=== PATIENT | female | born 1965 | race African-American/Black ===

== ENCOUNTER 2020-05-07 16:09 | Outpatient (CLI) | payer OTHER, SELFPAY ==
[2020-05-07 16:39] LABS: Hematocrit 41.1 % (37.0-47.0); Hemoglobin 13.7 g/dL (12.0-15.0); Mean Corpuscular HGB Conc 33.3 g/dl (32-36); Mean Corpuscular Hemoglobin 29.7 pg (26-34); Mean Platelet Volume 10.4 fl (7.4-10.4); Platelet Count Result 295 k/mm3 (150-375); Red Blood Count 4.62 M/mm3 (4.2-5.4); Red Cell Distribution Width 13.4 % (11.5-14.5); White Blood Count 7.5 K/mm3 (4.5-10.0)
== END 2020-05-07 16:10 | disposition home or self-care (01) ==
PROVIDERS: PCP Family Medicine; Visit Provider Family Medicine
DX: D64.9 Anemia, unspecified (principal)
CPT/HCPCS: 36415; 85027

== ENCOUNTER 2020-07-10 17:44 | Outpatient (CLI) | payer OTHER, SELFPAY ==
--- NOTE | ~2020-07-10 | MM_ITS ---
EXAMINATION: MM screening [facility] BI w vilma HISTORY: Screening mammogram TECHNIQUE: Craniocaudal and mediolateral oblique 3-D tomosynthesis images were obtained and synthetic 2-D images were generated. CAD analysis was submitted and interpreted. COMPARISON: 07/07/2019, 07/01/2018, 06/18/2017 bilateral digital screening mammogram examinations BREAST PARENCHYMAL COMPOSITION: There are scattered areas of fibroglandular density. FINDINGS: There are multiple bilateral benign calcifications. There is no evidence of suspicious mass , calcification, or architectural distortion to suggest malignancy in either breast. There has been n o suspicious interval change. IMPRESSION: 1. No mammographic evidence of malignancy. 2. Recommend routine screening mammography in one year. BI-RADS Category 2: Benign finding(s). Reviewed, dictated and finalized at location A.
== END 2020-07-10 17:45 | disposition home or self-care (01) ==
LOC: ANHIMG 17:48
PROVIDERS: PCP Family Medicine; Visit Provider Obstetrics & Gynecology
DX: Z12.31 Encounter for screening mammogram for malignant neoplasm of breast (principal)
CPT/HCPCS: 77063; 77067

== ENCOUNTER 2021-07-23 17:01 | Outpatient (CLI) | payer OTHER, SELFPAY ==
--- NOTE | ~2021-07-23 | MM_ITS ---
EXAMINATION: MM screening [facility] BI w vilma HISTORY: Screening TECHNIQUE: Craniocaudal and mediolateral oblique 3-D tomosynthesis images were obtained and synthetic 2-D images were generated. CAD analysis was submitted and interpreted. COMPARISON: Comparison to multiple prior studies sequentially, with oldest reviewed study dated 04/2015. BREAST PARENCHYMAL COMPOSITION: There are scattered areas of fibroglandular density. FINDINGS: There is no evidence of suspicious mass, calcification, or architectural distortion to sugg est malignancy in either breast. There has been no suspicious interval change. IMPRESSION: 1. No mammographic evidence of malignancy. 2. Recommend routine screening mammography in one year. BI-RADS Category 1: Negative Reviewed, dictated and finalized at location A.
== END 2021-07-23 17:02 | disposition home or self-care (01) ==
LOC: ANHIMG 17:04
PROVIDERS: PCP Family Medicine; Visit Provider Obstetrics & Gynecology
DX: Z12.31 Encounter for screening mammogram for malignant neoplasm of breast (principal)
CPT/HCPCS: 77063; 77067

== ENCOUNTER 2022-01-11 10:58 | Outpatient (CLI) | payer OTHER, SELFPAY ==
--- NOTE | ~2022-01-11 | US_ITS ---
EXAMINATION: US retroperitoneal comp DATE: 01/11/2022 11:58 INDICATION: Microscopic hematuria TECHNIQUE: Multiple ultrasound grayscale images of the kidneys were obtained. COMPARISON: CT dated 06/08/2018 FINDINGS: The right kidney measures 11.5 x 5.9 x 6.1 cm. The left kidney measures 10.1 x 5.2 x 5.6 cm. The kidn eys demonstrate normal echogenicity. Bilateral 1 cm anechoic cysts. There is no hydronephrosis in eit her kidney. No stones identified. The bladder is normal. IMPRESSION: 1. 1 cm bilateral renal cysts. Otherwise normal kidneys with no hydronephrosis. Reviewed, dictated and finalized at location B. IMPRESSION: 1. 1 cm bilateral renal cysts. Otherwise normal kidneys with no hydronephrosis .
== END 2022-01-11 10:59 | disposition home or self-care (01) ==
LOC: ANHIMG 11:06
PROVIDERS: PCP Family Medicine; Visit Provider Urology
DX: R31.29 Other microscopic hematuria (principal); N28.1 Cyst of kidney, acquired
CPT/HCPCS: 76770

== ENCOUNTER 2022-01-21 01:29 | Day surgery (SDC) | payer OTHER, SELFPAY ==
[2022-01-12 12:46] VITALS: BMI 39.5
--- NOTE | 2022-01-20 14:25 | PM.HPGS ---
History of Present Illness History of Present Illness Consent: Risks, benefits, and alternatives have been discussed and questions answered. Patient agrees to proceed with procedure. Chief complaint: epigastric pain, GERD Narrative: Aisha Young is a 57 year old female here for evaluation of belching and burning sensation in chest for 2 months now. Reports symptoms are worse with eating. Will feel a burning sensation in mid-chest that radiates down to epigastric region when swallowing foods, she denies any dysphagia. She reports increase epigastric pressure and discomfort after eating. Symptoms are not associated with any particular foods. She has hx of chronic NSAID use, takes Ibuprofen 600mg daily for at least 5 years now. Symptoms have improved some with omeprazole 20 mg daily but have not completely resolved. 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 Her mother from amyloid. Review of Systems Review of Systems: All systems reviewed & are unremarkable except as noted in HPI and below PMFSH Past Medical History Medical History Arthritis Chronic back pain Fibroids GERD (gastroesophageal reflux disease) HLD (hyperlipidemia) HTN (hypertension) Hypertensive retinopathy Uveitis Surgical History Surgical History H/O dilation and curettage 1993 Hx of hysterectomy Status post breast reduction Family History Family History Father Hypertension Mother Hypertension Amyloidosis Sibling Hypertension Social History Social History Social History: Fiance Smoking status: Never smoker Second hand tobacco smoke exposure: No Alcohol intake: current Alcohol use details: rarely Substance use: never Substance use type: does not use Living arrangements: with friend(s) Additional living arrangements comments: Pt lives with her fiance Gender identity (if verbalized by the patient): Female Sexual Orientation (if Verbalized by the Patient): Straight or Heterosexual Spiritual care concerns: No Meds Home Medications and Allergies Home Medications Medication Instructions Recorded Confirmed Type estradiol 1 mg tablet 1 mg PO DAILY 08/13/19 01/12/22 History fluticasone propionate 50 2 spray NASAL DAILY PRN 08/13/19 01/12/22 History mcg/actuation nasal spray,suspension aspirin 81 mg tablet,delayed 81 mg PO DAILY #90 tablet 10/20/21 01/12/22 Rx release atenolol 50 mg tablet 50 mg PO DAILY #90 tablet 10/20/21 01/12/22 Rx atorvastatin 80 mg tablet 80 mg PO DAILY #90 tablet 10/20/21 01/12/22 Rx hydrochlorothiazide 25 mg tablet 25 mg PO DAILY #90 tablet 10/20/21 01/12/22 Rx lisinopril 20 mg tablet 20 mg PO DAILY #90 tablet 10/20/21 01/12/22 Rx famotidine 20 mg tablet 20 mg PO BID 30 Days #60 tablet 01/08/22 01/12/22 Rx acetaminophen [Tylenol] 650 mg PO ONCE PRN 01/12/22 01/12/22 History cetirizine [Zyrtec] 10 mg PO DAILY PRN 01/12/22 01/12/22 History ibuprofen 600 mg PO TID PRN 01/12/22 01/12/22 History Allergies Allergy/AdvReac Type Severity Reaction Status Date / Time nitrofurantoin Allergy Unknown Hives Verified 01/04/22 13:36 Sulfa (Sulfonamide Allergy Unknown Hives Verified 01/04/22 13:36 Antibiotics) red dye Allergy Hives Verified 01/12/22 12:39 NITRATE Allergy Mild HIVES Uncoded 01/04/22 13:36 NITROFURANTOIN MACROCRYSTAL Allergy Mild Hives Uncoded 01/04/22 13:36 Exam Resp: Auscultation: clear to auscultation bilaterally Cardio: Rate: regular rate Rhythm: regular rhythm GI: GI Palp: Yes Soft to palpation and No Tenderness to palpation present (GI) Assessment and Plan Assessment and plan (1) GERD (gastroesophageal reflux disease): Code(s): K21.9 - Gastro-esophageal reflux disease without esophagitis Status: Acute Assessment a
[2022-01-21 11:03] VITALS: BP 133/77; PULSE 63; RESP 18; TEMP 35.9; O2SAT 100
--- NOTE | 2022-01-21 11:12 | WPDANESEPPF ---
Anes - Initial Pre Proc Eval Procedure: Operation Date: 01/21/22 12:30 Proposed Procedures p Esophagogastroduodenoscopy - Rafael Bland MD Date/Time: 01/21/22 11:12 Surgeon: Rafael Bland MD Pre Op Diagnosis: epigastric pain, GERD Patient Data Age: 57 Gender: F Height: 1.57 m Weight: 95.5 kg Last Vital Signs Temp 35.9 C L 01/21/22 11:03 Pulse 63 01/21/22 11:03 Resp 18 01/21/22 11:03 BP 133/77 01/21/22 11:03 Pulse Ox 100 01/21/22 11:03 Allergies Allergy/AdvReac Type Severity Reaction Status Date / Time nitrofurantoin Allergy Unknown Hives Verified 01/21/22 11:02 Sulfa (Sulfonamide Allergy Unknown Hives Verified 01/21/22 11:02 Antibiotics) red dye Allergy Hives Verified 01/21/22 11:02 NITRATE Allergy Mild HIVES Uncoded 01/21/22 11:02 NITROFURANTOIN MACROCRYSTAL Allergy Mild Hives Uncoded 01/21/22 11:02 Home Medications Medication Instructions Recorded Confirmed Type estradiol 1 mg tablet 1 mg PO DAILY 08/13/19 01/21/22 History fluticasone propionate 50 2 spray NASAL DAILY PRN 08/13/19 01/21/22 History mcg/actuation nasal spray,suspension aspirin 81 mg tablet,delayed 81 mg PO DAILY #90 tablet 10/20/21 01/21/22 Rx release atenolol 50 mg tablet 50 mg PO DAILY #90 tablet 10/20/21 01/21/22 Rx atorvastatin 80 mg tablet 80 mg PO DAILY #90 tablet 10/20/21 01/21/22 Rx hydrochlorothiazide 25 mg tablet 25 mg PO DAILY #90 tablet 10/20/21 01/21/22 Rx lisinopril 20 mg tablet 20 mg PO DAILY #90 tablet 10/20/21 01/21/22 Rx famotidine 20 mg tablet 20 mg PO BID 30 Days #60 tablet 01/08/22 01/21/22 Rx acetaminophen [Tylenol] 650 mg PO ONCE PRN 01/12/22 01/21/22 History cetirizine [Zyrtec] 10 mg PO DAILY PRN 01/12/22 01/21/22 History ibuprofen 600 mg PO TID PRN 01/12/22 01/21/22 History Patient hx anesthesia problems: none Family hx anesthesia problems: none Results Review: All pre-operative results and documents have been reviewed as part of the pre-operative evaluation. [facility] Past Medical History Medical History Arthritis Chronic back pain Fibroids GERD (gastroesophageal reflux disease) HLD (hyperlipidemia) HTN (hypertension) Hypertensive retinopathy Uveitis Surgical History Surgical History H/O dilation and curettage 1992 Hx of hysterectomy Status post breast reduction Family History Family History Father Hypertension Mother Hypertension Amyloidosis Sibling Hypertension Social History Social History Social History: Fiance Smoking status: Never smoker Second hand tobacco smoke exposure: No Alcohol intake: current Alcohol use details: rarely Substance use: never Substance use type: does not use Living arrangements: with friend(s) Additional living arrangements comments: Pt lives with her fiance Gender identity (if verbalized by the patient): Female Sexual Orientation (if Verbalized by the Patient): Straight or Heterosexual Spiritual care concerns: No Anes - Eval Final PreProcedure Day of Procedure 01/21/22 11:12 Patient weight: obese Heart: regular rate and rhythm Lungs: clear to auscultation Airway: Mallampati scale class II Neurological: alert and oriented Last oral intake: >/= 8 hours ASA classification: III Emergent: no Anesthetic plan: proceed Anesthesia type and monitoring: general GIVS and standard monitoring Results Review: All pre-operative results and documents have been reviewed as part of the pre-operative evaluation. Informed Consent: The patient's anesthetic plan and its attendant risks and benefits were discussed with the patient/family/POA. Questions were solicited and answers provided to the satisfaction of the patient/family/POA.
[2022-01-21] MEDS: LACTATED RINGERS 1,000 ML 150 ML IV CONT (11:16)
[2022-01-21 11:40] VITALS: BP 102/65; PULSE 64; RESP 28; O2SAT 100
[2022-01-21 11:50] VITALS: BP 114/70; PULSE 55; RESP 23; O2SAT 100
[2022-01-21 12:00] VITALS: BP 116/81; PULSE 62; RESP 18; O2SAT 100
== END 2022-01-21 12:13 | disposition home or self-care (01) ==
PROVIDERS: PCP Family Medicine; Visit Provider Internal Medicine Gastroenterology
PROC: 0DJ08ZZ Inspection of Upper Intestinal Tract, Via Natural or Artificial Opening Endoscopic (ICD-10-PCS; CPT 43235; principal; 2022-01-21 12:30)
DX: K21.00 Gastro-esophageal reflux disease with esophagitis, without bleeding (principal); K29.70 Gastritis, unspecified, without bleeding; E78.5 Hyperlipidemia, unspecified; I10 Essential (primary) hypertension; H35.039 Hypertensive retinopathy, unspecified eye; M54.9 Dorsalgia, unspecified; G89.29 Other chronic pain; Z79.1 Long term (current) use of non-steroidal anti-inflammatories (NSAID)
CPT/HCPCS: 43239; 87081; 88305; 88313; J2704; J7120

== ENCOUNTER 2022-01-29 19:26 | Emergency (ER) | payer OTHER, SELFPAY ==
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
[2022-01-29 19:35] VITALS: BP 132/79; PULSE 62; RESP 14; O2SAT 98
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
[2022-01-29] MEDS: IBUPROFEN 600 MG TABLET PO (20:53)
[2022-01-29 21:56] VITALS: BP 134/86; PULSE 72; RESP 18; O2SAT 96
== END 2022-01-29 21:58 | disposition home or self-care (01) ==
LOC: ANHED 21:25
PROVIDERS: Emergency Provider Emergency Medicine; PCP Family Medicine
DX: S16.1XXA Strain of muscle, fascia and tendon at neck level, initial encounter (principal); E78.5 Hyperlipidemia, unspecified; I10 Essential (primary) hypertension; K21.9 Gastro-esophageal reflux disease without esophagitis; H35.039 Hypertensive retinopathy, unspecified eye; M19.90 Unspecified osteoarthritis, unspecified site; M47.812 Spondylosis without myelopathy or radiculopathy, cervical region; V43.52XA Car driver injured in collision with other type car in traffic accident, initial encounter
CPT/HCPCS: 70450; 71046; 72125; 99284; A9270

== ENCOUNTER 2022-09-21 08:47 | Outpatient (CLI) | payer OTHER, SELFPAY ==
--- NOTE | ~2022-09-21 | MM_ITS ---
EXAMINATION: MM screening tana BI w vilma HISTORY: Screening mammogram TECHNIQUE: Craniocaudal and mediolateral oblique 3-D tomosynthesis images were obtained and synthetic 2-D images were generated. CAD analysis was submitted and interpreted. COMPARISON: 07/23/2021, 07/10/2020, 07/07/2019 BREAST PARENCHYMAL COMPOSITION: The breasts are almost entirely fatty. FINDINGS: Stable changes of reduction mammoplasty are noted. No suspicious mass, calcification, or ar chitectural distortion are identified in either breast to suggest malignancy. There has been no suspi cious interval change. IMPRESSION: 1. No mammographic evidence of malignancy. 2. Recommend routine screening mammography in one year. BI-RADS Category 2: Benign finding(s). Reviewed, dictated and finalized at location A. CAPTAIN
== END 2022-09-21 08:48 | disposition home or self-care (01) ==
PROVIDERS: PCP Family Medicine; Visit Provider Obstetrics & Gynecology
DX: Z12.31 Encounter for screening mammogram for malignant neoplasm of breast (principal)
CPT/HCPCS: 77063; 77067

== ENCOUNTER 2023-01-07 15:06 | Outpatient (CLI) | payer OTHER, SELFPAY ==
--- NOTE | ~2023-01-07 | CT_ITS ---
CT of the Abdomen and Pelvis: Indication: Microscopic hematuria Technique: 2.5 mm axial scans were obtained through the abdomen and pelvis prior to and following in travenous administration of 130 cc of Omnipaque 350. Dose reduction technique was used on this scan b y utilizing automated exposure control and iterative reconstruction technique. The dose-length produc t (DLP) was 1594.37 mGy-cm. COMPARISON: 06/08/2018 Findings: Scans through the lung bases are unremarkable. The liver, spleen, pancreas, gallbladder, adrenals and kidneys are within normal limits. No evidence of aortic aneurysm. No lymphadenopathy. No bowel obstruction or bowel wall thickening. There is no evidence to suggest acute appendicitis. Sm all fat-containing hernia noted. Images through the pelvis were performed. Urinary bladder unremarkable. Patient is post hysterectomy. No pelvic mass seen. No ascites. Shotty pelvic and retroperitoneal lymph nodes are similar to prior exam. Impression: No etiology for hematuria identified. No significant change from prior exam. Very small fat-containing umbilical hernia. Reviewed, dictated and finalized at [facility]. Impression: No etiology for hematuria identified. No significant change from prior exam. Very small fat-containing umbilical hernia.
[2023-01-07 15:43] LABS: Estimated Glomerular Filt Rate > 60
== END 2023-01-07 15:07 | disposition home or self-care (01) ==
PROVIDERS: PCP Family Medicine; Visit Provider Urology
DX: R31.29 Other microscopic hematuria (principal)
CPT/HCPCS: 74178; Q9967

== ENCOUNTER 2023-02-04 14:39 | Outpatient (CLI) | payer OTHER, SELFPAY ==
--- NOTE | ~2023-02-04 | US_ITS ---
EXAMINATION: US soft tissue head and neck DATE: 02/04/2023 15:12 INDICATION: Subcutaneous nodule at the posterior left scalp TECHNIQUE: Multiple grayscale and Doppler ultrasound images of the region of concern at the left scal p posterior to the ear were obtained. COMPARISON: Head CT dated 01/29/2022 FINDINGS: There is a 8 x 4 x 11 mm lenticular region of increased echogenicity in the deep scalp at the region of concern which abuts the underlying outer table of the skull. Correlation with prior CT demonstrate s a similar sized and located lenticular macroscopic fat attenuation nodule consistent with a lipoma located on axial series 3, images 15 & 16. No other masses or fluid collections identified. IMPRESSION: 1. 8 x 4 x 11 mm hyperechoic nodules in the deep scalp at the region of concern which on prior CT lo ears to correlate with a macroscopic fat attenuation lipoma. Reviewed, dictated and finalized at location A. IMPRESSION: 1. 8 x 4 x 11 mm hyperechoic nodules in the deep scalp at the region of concern which on prior CT appears to correlate with a macroscopic fat attenuation lipo ma.
== END 2023-02-04 14:40 | disposition home or self-care (01) ==
PROVIDERS: PCP Family Medicine; Visit Provider Physician Assistant
DX: L72.9 Follicular cyst of the skin and subcutaneous tissue, unspecified (principal); R91.8 Other nonspecific abnormal finding of lung field
CPT/HCPCS: 76536

== ENCOUNTER 2023-10-25 12:34 | Outpatient (CLI) | payer OTHER, SELFPAY ==
--- NOTE | ~2023-10-25 | MM_ITS ---
EXAMINATION: MM screening tana BI w vilma HISTORY: Screening mammogram TECHNIQUE: Craniocaudal and mediolateral oblique 3-D tomosynthesis images were obtained and synthetic 2-D images were generated. CAD analysis was submitted and interpreted. COMPARISON: 09/21/2022, 07/2021 bilateral screening mammogram examinations BREAST PARENCHYMAL COMPOSITION: There are scattered areas of fibroglandular density. FINDINGS: Status post bilateral reduction mammoplasty. Scattered bilateral benign calcifications. The re is no evidence of suspicious mass, calcification, or architectural distortion to suggest malignanc y in either breast. There has been no suspicious interval change. IMPRESSION: 1. No mammographic evidence of malignancy. 2. Recommend routine screening mammography in one year. BI-RADS Category 2: Benign finding(s). Reviewed, dictated and finalized at location A. [employer]
== END 2023-10-25 12:35 | disposition home or self-care (01) ==
PROVIDERS: PCP Family Medicine; Visit Provider Obstetrics & Gynecology
DX: Z12.31 Encounter for screening mammogram for malignant neoplasm of breast (principal)
CPT/HCPCS: 77063; 77067

== ENCOUNTER 2023-10-27 18:23 | Emergency (ER) | payer OTHER, SELFPAY ==
[2023-10-27 18:37] VITALS: BP 135/75; PULSE 60; RESP 16; TEMP 36.3; O2SAT 100
--- NOTE | 2023-10-27 18:53 | ED.GENADULT ---
HPI - General Adult General Chief complaint: Ear Stated complaint: Headache;Ear pain Source: patient, RN notes reviewed and old records reviewed Mode of arrival: ambulatory Limitations: no limitations History of Present Illness HPI narrative: patient with complaint of bilateral ear pressure, and sinus pressure for approximately 2 weeks. Patient states symptoms, go. Patient taking [id number] sinus medications with no relief. Patient denies cough, sinus congestion. Related Data Home Medications Medication Instructions Recorded Confirmed estradiol 1 mg tablet 1 mg PO DAILY 08/13/19 10/27/23 fluticasone propionate 50 2 spray intranasal DAILY PRN 08/13/19 10/27/23 mcg/actuation nasal allergies spray,suspension acetaminophen 325 mg tablet 650 mg PO ONCE PRN Pain 01/12/22 10/27/23 (Tylenol) cetirizine 10 mg tablet (Zyrtec) 10 mg PO DAILY PRN allergies 01/12/22 10/27/23 Allergies Allergy/AdvReac Type Severity Reaction Status Date / Time nitrofurantoin Allergy Unknown Hives Verified 10/27/23 18:42 Sulfa (Sulfonamide Allergy Unknown Hives Verified 10/27/23 18:42 Antibiotics) red dye Allergy Hives Verified 10/27/23 18:42 methoxyphenamine AdvReac Intermediate Anxiety Verified 10/27/23 18:42 NITRATE Allergy Mild HIVES Uncoded 10/27/23 18:42 NITROFURANTOIN MACROCRYSTAL Allergy Mild Hives Uncoded 10/27/23 18:42 Review of Systems Constitutional: Constitutional: Reports no additional constitutional complaints, Denies body ache(s), Denies chills, Denies fatigue, Denies fever(s) and Denies headache(s) Eyes: Eyes: Reports no additional eye complaints and Denies blurry vision ENT: Reports system reviewed and no additional complaints, except as documented, Denies vertigo, Denies dizziness, Denies ear discharge, Reports otalgia, Reports facial pain, Denies headache(s), Denies nasal congestion, Denies nasal discharge, Denies sinus pain, Denies sinus pressure and Denies sore throat Cardiovascular: Cardiovascular: Reports no additional cardiovascular complaints, Denies chest pain, Denies chest pain at rest, Denies rapid heart rate and Denies dyspnea Respiratory: Respiratory: Reports no additional respiratory complaints, Denies chest congestion, Denies cough, Denies pain on inspiration, Denies pain with cough and Denies dyspnea Gastrointestinal: Gastrointestinal: Denies abdominal pain, Denies diarrhea, Denies nausea and Denies vomiting Integumentary/Breasts: Skin/Breast: Denies rash Neurologic: Reports system reviewed and no additional complaints, except as documented, Denies vertigo, Denies dizziness and Denies headache(s) Endocrine: Endocrine: Denies fatigue PMFSH Past Medical History Medical History Arthritis Chronic back pain Fibroids GERD (gastroesophageal reflux disease) HLD (hyperlipidemia) HTN (hypertension) Hypertensive retinopathy Uveitis Surgical History Surgical History H/O dilation and curettage 1993 Hx of hysterectomy Status post breast reduction Family History Family History Father Hypertension Mother Hypertension Amyloidosis Sibling Hypertension Social History Social History Social History: Fiance Smoking status: Never smoker Second hand tobacco smoke exposure: No Alcohol intake: current Alcohol use details: rarely Substance use: never Substance use type: does not use Living arrangements: with friend(s) Additional living arrangements comments: Pt lives with her fibarb Occupation/Education: retired Gender identity (if verbalized by the patient): Female Sexual Orientation (if Verbalized by the Patient): Straight or Heterosexual Spiritual care concerns: No Comments At the time of my signature, I reviewed and agree with the nursing pas
== END 2023-10-27 19:11 | disposition home or self-care (01) ==
PROVIDERS: Emergency Provider Registered Nurse; PCP Family Medicine
DX: H65.03 Acute serous otitis media, bilateral (principal); M19.90 Unspecified osteoarthritis, unspecified site; K21.9 Gastro-esophageal reflux disease without esophagitis; E78.5 Hyperlipidemia, unspecified; I10 Essential (primary) hypertension; H35.039 Hypertensive retinopathy, unspecified eye
CPT/HCPCS: 99211; G0463

== ENCOUNTER 2023-11-15 15:51 | Outpatient (CLI) | payer OTHER, SELFPAY ==
[2023-11-15 16:57] LABS: Alanine Aminotransferase 18 U/L (6-35); Albumin Level 3.7 g/dL (3.5-5.1); Alkaline Phosphatase 73 U/L (38-126); Anion Gap 3 mmol/L (8-16); Aspartate Amino Transferase 25 U/L (14-36); Bilirubin,Total 0.7 mg/dL (0.2-1.3); Blood Urea Nitrogen 10 mg/dL (7-17); Calcium 9.4 mg/dL (8.4-10.2); Carbon Dioxide 31 mmol/L (22-30); Chloride 103 mmol/L (98-107); Estimated Glomerular Filt Rate > 60; Glucose 82 mg/dL (65-110); Potassium 3.6 mmol/L (3.4-5.0); Sodium 137 mmol/L (137-145)
== END 2023-11-15 15:52 | disposition home or self-care (01) ==
LOC: ANHLAB 15:52
PROVIDERS: PCP Family Medicine; Visit Provider Family Medicine
DX: I10 Essential (primary) hypertension (principal)
CPT/HCPCS: 36415; 80053

== ENCOUNTER 2023-11-21 19:39 | Emergency (ER) | payer OTHER, SELFPAY ==
--- NOTE | 2023-11-21 19:41 | ED.GENADULT ---
HPI - General Adult General Stated complaint: HIGH BLOOD PRESSURE Time Seen by Provider: 11/21/23 19:42 Source: patient Mode of arrival: ambulatory Limitations: no limitations History of Present Illness HPI narrative: 58-year-old female presents with concern for high blood pressure. She reports she has been seeing her doctor for high blood pressure, she had a medication change and has been monitoring her blood pressure at home. Reports that his been high, she called her doctor today and they had her double her lisinopril which she did. She reports when she was at [facility] she felt dizzy and had head pressure, she took her blood pressure at [facility] and it was 170 systolic. She denies vision changes, thunderclap headache, weakness in any extremity MD complaint: Hypertension Related Data Home Medications Medication Instructions Recorded Confirmed estradiol 1 mg tablet 1 mg PO DAILY 08/13/19 11/21/23 fluticasone propionate 50 2 spray intranasal DAILY PRN 08/13/19 11/21/23 mcg/actuation nasal allergies spray,suspension acetaminophen 325 mg tablet 650 mg PO ONCE PRN Pain 01/12/22 11/21/23 (Tylenol) cetirizine 10 mg tablet (Zyrtec) 10 mg PO DAILY PRN allergies 01/12/22 11/21/23 ketorolac 0.5 % eye drops 3 drp EACH EYE Q6H 11/15/23 11/21/23 Allergies Allergy/AdvReac Type Severity Reaction Status Date / Time nitrofurantoin Allergy Unknown Hives Verified 11/21/23 19:47 Sulfa (Sulfonamide Allergy Unknown Hives Verified 11/21/23 19:47 Antibiotics) red dye Allergy Hives Verified 11/21/23 19:47 methoxyphenamine AdvReac Intermediate Anxiety Verified 11/21/23 19:47 methylprednisolone AdvReac Unknown Rash Verified 11/21/23 19:47 prednisone AdvReac Unknown Rash Verified 11/21/23 19:47 NITRATE Allergy Mild HIVES Uncoded 11/21/23 19:47 NITROFURANTOIN MACROCRYSTAL Allergy Mild Hives Uncoded 11/21/23 19:47 Review of Systems Review of Systems: CONSTITUTIONAL: Denies malaise, chills, sweats, or fever. EYES: Denies visual changes CARDIOVASCULAR: Denies chest pain, palpitations, or edema. RESPIRATORY: Denies cough or dyspnea. NEUROLOGIC: Reports dizziness, headache. PSYCHIATRIC: Denies anxiety or depression. All systems reviewed & are unremarkable except as noted in HPI and below PMFSH Past Medical History Medical History Arthritis Chronic back pain Fibroids GERD (gastroesophageal reflux disease) HLD (hyperlipidemia) HTN (hypertension) Hypertensive retinopathy Uveitis Surgical History Surgical History H/O dilation and curettage 1993 Hx of hysterectomy Status post breast reduction Family History Family History Father Hypertension Mother Hypertension Amyloidosis Sibling Hypertension Social History Social History Social History: Fiance Smoking status: Never smoker Second hand tobacco smoke exposure: No Alcohol intake: current Alcohol use details: rarely Substance use: never Substance use type: does not use Living arrangements: with friend(s) Additional living arrangements comments: Pt lives with her fiance Occupation/Education: retired Gender identity (if verbalized by the patient): Female Sexual Orientation (if Verbalized by the Patient): Straight or Heterosexual Spiritual care concerns: No Comments At time of signature, agree with nursing past medical, surgical, social and family history. There is no relevant family history pertinent to the presenting complaint Exam Narrative: GENERAL: Well-appearing, well-nourished, and in no acute distress. HEAD: Normocephalic, atraumatic. EYES: PERRLA, sclera clear, and EOMI. No nystagmus. ENT: Nares clear. Mucous membranes moist. NECK: Supple. CHEST: No respiratory distress. Speaks in full sentence
[2023-11-21 19:43] VITALS: BP 201/107; PULSE 60; RESP 16; TEMP 36.5; O2SAT 100
== END 2023-11-21 20:00 | disposition short-term general hospital (02) ==
PROVIDERS: Emergency Provider Nurse Practitioner; PCP Family Medicine
DX: I10 Essential (primary) hypertension (principal); M19.90 Unspecified osteoarthritis, unspecified site; K21.9 Gastro-esophageal reflux disease without esophagitis; E78.5 Hyperlipidemia, unspecified; H35.039 Hypertensive retinopathy, unspecified eye
CPT/HCPCS: 99212; G0463

== ENCOUNTER 2023-11-21 20:21 | Emergency (ER) | payer OTHER, SELFPAY ==
[2023-11-21 20:58] VITALS: BP 172/97; PULSE 62; RESP 16; TEMP 36.6; O2SAT 99
[2023-11-21 23:04] VITALS: BP 195/91; O2SAT 98
[2023-11-21 23:50] VITALS: BP 166/78; PULSE 58; RESP 14; O2SAT 100
[2023-11-22 01:20] LABS: Basophils Percent Auto 0.3 % (0.2-1.2); Eosinophils Absolute Auto 0.1 K/mm3 (0-0.3); Eosinophils Percent Auto 0.5 % (0-4.4); Hematocrit 37.1 % (37.0-47.0); Immature Granulocyte Absolute 0.04 K/mm3 (0.00-0.031); Immature Granulocyte Percent A 0.4 % (0-0.5); Lymphocytes Absolute Auto 2.76 K/mm3 (0.9-3.2); Mean Corpuscular HGB Conc 32.3 g/dl (32-36); Mean Corpuscular Hemoglobin 29.5 pg (26-34); Mean Corpuscular Volume 91.2 fl (80-100); Mean Platelet Volume 10.3 fl (7.4-10.4); Monocytes Absolute Auto 0.9 K/mm3 (0.1-0.6); Monocytes Percent Auto 8.6 % (2.6-8.5); Neutrophils Absolute Auto 6.5 K/mm3 (1.3-6.7); Neutrophils Percent Auto 63.2 % (45.5-73.1); Platelet Count Result 315 k/mm3 (150-375); Red Blood Count 4.07 M/mm3 (4.2-5.4); Red Cell Distribution Width 14.4 % (11.5-14.5); White Blood Count 10.2 K/mm3 (4.5-10.0)
[2023-11-22 01:21] LABS: Appearance Urine Clear (Clear); Bilirubin Urine Negative (Negative); Blood Urine Negative (Negative); Color Urine Yellow (Yellow); Glucose Urine UA Negative (Negative); Ketones Urine Negative (Negative); Leukocyte Esterase Ur Negative LEU/UL (Negative); Nitrate Urine Negative (Negative); Protein Urine Negative (Negative); Urobilinogen Urine 0.2 mg/dL (<2.0)
[2023-11-22 01:26] LABS: Add Urine Microscopic? NO
[2023-11-22 01:31] LABS: Alanine Aminotransferase 18 U/L (6-35); Albumin Level 4.2 g/dL (3.5-5.1); Alkaline Phosphatase 78 U/L (38-126); Anion Gap 7 mmol/L (8-16); Aspartate Amino Transferase 23 U/L (14-36); Blood Urea Nitrogen 19 mg/dL (7-17); Calcium 9.6 mg/dL (8.4-10.2); Carbon Dioxide 29 mmol/L (22-30); Chloride 101 mmol/L (98-107); Estimated CRCL calculation 76 ml/min; Estimated Glomerular Filt Rate > 60; Glucose 96 mg/dL (65-110); Potassium 3.4 mmol/L (3.4-5.0); Sodium 137 mmol/L (137-145)
[2023-11-22 01:55] VITALS: BP 156/84; PULSE 55; RESP 16; O2SAT 100
[2023-11-22 01:57] LABS: Influenza A QL RT-PCR Negative (Negative); Influenza B QL RT-PCR Negative (Negative); RSV RNA, RT-PCR Negative (Negative); SARS-CoV-2 RNA PCR Negative (Negative)
--- NOTE | 2023-11-22 02:03 | ED.GENADULT ---
HPI - General Adult General Chief complaint: Recheck/Abnormal Lab/Rx Stated complaint: From UC with htn Time Seen by Provider: 11/22/23 00:09 History of Present Illness HPI narrative: Patient is a 58-year-old female who presents to the emergency department this evening complaining of elevated blood pressure. Patient went to an urgent care prior to arrival to our emergency department and noted that her blood pressure was 195 systolic. Patient was recently switched to a new blood pressure medication, she was taken off of her hydrochlorothiazide and switch to lisinopril 20 mg daily. Patient called her primary care physician regarding her elevated blood pressures, which have been fluctuating anywhere from 150-195 systolic throughout the past week since she has been on lisinopril 20 mg instead of her hydrochlorothiazide. PCP recommended that she take lisinopril 20 mg twice a day. Patient also takes atenolol for her blood pressure. Patient admits that she has been having some head pressure and is unsure if this is related to her high blood pressure. Patient states that she was taken off her hydrochlorothiazide due to body swelling and increased eye pressure 2 days after IV contrast which her PCP was concerned could be an allergic reaction to dye. Related Data Home Medications Medication Instructions Recorded Confirmed estradiol 1 mg tablet 1 mg PO DAILY 08/13/19 11/21/23 fluticasone propionate 50 2 spray intranasal DAILY PRN 08/13/19 11/21/23 mcg/actuation nasal allergies spray,suspension acetaminophen 325 mg tablet 650 mg PO ONCE PRN Pain 01/12/22 11/21/23 (Tylenol) cetirizine 10 mg tablet (Zyrtec) 10 mg PO DAILY PRN allergies 01/12/22 11/21/23 ketorolac 0.5 % eye drops 3 drp EACH EYE Q6H 11/15/23 11/21/23 Allergies Allergy/AdvReac Type Severity Reaction Status Date / Time nitrofurantoin Allergy Unknown Hives Verified 11/21/23 19:47 Sulfa (Sulfonamide Allergy Unknown Hives Verified 11/21/23 19:47 Antibiotics) iohexol Allergy Swelling Verified 11/21/23 20:23 [From contrast - CT, X-RAY] red dye Allergy Hives Verified 11/21/23 19:47 methoxyphenamine AdvReac Intermediate Anxiety Verified 11/21/23 19:47 methylprednisolone AdvReac Unknown Rash Verified 11/21/23 19:47 prednisone AdvReac Unknown Rash Verified 11/21/23 19:47 NITRATE Allergy Mild HIVES Uncoded 11/21/23 19:47 NITROFURANTOIN MACROCRYSTAL Allergy Mild Hives Uncoded 11/21/23 19:47 PMFSH Past Medical History Medical History Arthritis Chronic back pain Fibroids GERD (gastroesophageal reflux disease) HLD (hyperlipidemia) HTN (hypertension) Hypertensive retinopathy Uveitis Surgical History Surgical History H/O dilation and curettage 1993 Hx of hysterectomy Status post breast reduction Family History Family History Father Hypertension Mother Hypertension Amyloidosis Sibling Hypertension Social History Social History Social History: Fiance Smoking status: Never smoker Second hand tobacco smoke exposure: No Alcohol intake: current Alcohol use details: rarely Substance use: never Substance use type: does not use Living arrangements: with friend(s) Additional living arrangements comments: Pt lives with her fiance Occupation/Education: retired Gender identity (if verbalized by the patient): Female Sexual Orientation (if Verbalized by the Patient): Straight or Heterosexual Spiritual care concerns: No Course Vital Signs Vital signs: Vital Signs Temperature 97.9 F 11/21/23 20:58 Pulse Rate 62 11/21/23 20:58 Respiratory Rate 16 11/21/23 20:58 Blood Pressure 172/97 H 11/21/23 20:58 Pulse Oximetry 99 11/21/23 20:58 Oxygen Delivery Room Air 11/21/23 20:58 Temperat
[2023-11-22 02:52] VITALS: BP 158/87; PULSE 57; RESP 14; O2SAT 99
== END 2023-11-22 02:53 | disposition home or self-care (01) ==
PROVIDERS: Emergency Provider Emergency Medicine; PCP Family Medicine
DX: I10 Essential (primary) hypertension (principal); Z11.52 Encounter for screening for COVID-19; E78.5 Hyperlipidemia, unspecified; H35.039 Hypertensive retinopathy, unspecified eye; K21.9 Gastro-esophageal reflux disease without esophagitis; M19.90 Unspecified osteoarthritis, unspecified site; Z90.710 Acquired absence of both cervix and uterus
CPT/HCPCS: 36415; 80053; 81003; 85025; 87637; 99283

== ENCOUNTER 2023-11-29 12:26 | Outpatient (CLI) | payer OTHER, SELFPAY ==
[2023-11-29 14:09] LABS: Alanine Aminotransferase 18 U/L (6-35); Albumin Level 4.4 g/dL (3.5-5.1); Alkaline Phosphatase 71 U/L (38-126); Anion Gap 7 mmol/L (8-16); Aspartate Amino Transferase 29 U/L (14-36); Blood Urea Nitrogen 26 mg/dL (7-17); Calcium 9.9 mg/dL (8.4-10.2); Carbon Dioxide 32 mmol/L (22-30); Chloride 99 mmol/L (98-107); Estimated Glomerular Filt Rate > 60; Glucose 92 mg/dL (65-110); Potassium 3.6 mmol/L (3.4-5.0); Sodium 138 mmol/L (137-145)
== END 2023-11-29 12:27 | disposition home or self-care (01) ==
LOC: ANHLAB 12:27
PROVIDERS: PCP Family Medicine; Visit Provider Family Medicine
DX: I10 Essential (primary) hypertension (principal)
CPT/HCPCS: 36415; 80053

== ENCOUNTER 2024-08-10 16:27 | Emergency (ER) | payer OTHER, SELFPAY ==
[2024-08-10] VITALS (7 sets, daily range): BP systolic 131–186; BP diastolic 74–100; PULSE 67–84; RESP 17–27; TEMP 36.7; O2SAT 99–100
[2024-08-10] MEDS: EPINEPHrine HCL INJ 1 MG/ML AMPUL (16:35)
[2024-08-10] MEDS: diphenhydrAMINE HCl INJ 50 MG/ML VIAL (16:35)
[2024-08-10] MEDS: FAMOTIDINE 20 MG/2 ML VIAL 40 MG (16:35)
--- NOTE | 2024-08-10 19:36 | ED.GENADULT ---
HPI - General Adult General Chief complaint: Allergic Reaction <Vick Reardon MD - Last Filed: 08/10/24 19:41> Stated complaint: ALLERGIC REACTION <Vick Reardon MD - Last Filed: 08/10/24 19:41> Time Seen by Provider: 08/10/24 16:36 <Vick Reardon MD - Last Filed: 08/10/24 19:41> History of Present Illness HPI narrative: This is a 59-year-old female presenting with swelling of her lower lip. Symptoms started 1 hour prior to arrival. Patient says that she had an EGD performed earlier today that went without complication. Patient denies swelling of her tongue or the back her throat. No voice changes or difficulty swallowing. No shortness of breath. Patient is on lisinopril. no hives, shortness of breath, lightheadedness nausea vomiting or diarrhea. <Vick Reardon MD - Last Filed: 08/10/24 19:41> Related Data Home medications: Home Medications Medication Instructions Recorded Confirmed estradiol 1 mg tablet 1 mg PO DAILY 08/13/19 03/13/24 fluticasone propionate 50 2 spray intranasal DAILY PRN 08/13/19 03/13/24 mcg/actuation nasal allergies spray,suspension bromfenac 0.07 % eye drops 1 drp EACH EYE ONCE 11/29/23 03/13/24 acetaminophen 325 mg tablet 650 mg PO ONCE PRN Pain 06/15/24 (Tylenol) <Vick Reardon MD - Last Filed: 08/10/24 19:41> Allergies/adverse reactions: Allergies Allergy/AdvReac Type Severity Reaction Status Date / Time nitrofurantoin Allergy Unknown Hives Verified 08/10/24 16:38 Sulfa (Sulfonamide Allergy Unknown Hives Verified 08/10/24 16:38 Antibiotics) iohexol Allergy Swelling Verified 08/10/24 16:38 [From contrast - CT, X-RAY] lisinopril Allergy Swelling Verified 08/10/24 16:39 of Lip/Tongue/Throat red dye Allergy Hives Verified 08/10/24 16:38 methoxyphenamine AdvReac Intermediate Anxiety Verified 08/10/24 16:38 diclofenac AdvReac Unknown feels Verified 08/10/24 16:38 funny methylprednisolone AdvReac Unknown Rash Verified 08/10/24 16:38 prednisone AdvReac Unknown Rash Verified 08/10/24 16:38 chlorthalidone AdvReac blurred Verified 08/10/24 16:38 vision NITRATE Allergy Mild HIVES Uncoded 08/10/24 16:38 NITROFURANTOIN MACROCRYSTAL Allergy Mild Hives Uncoded 06/15/24 09:39 <Vick Reardon MD - Last Filed: 08/10/24 19:41> [facility] [place] Past Medical History Medical History: Medical History Arthritis Chronic back pain GERD (gastroesophageal reflux disease) HLD (hyperlipidemia) HTN (hypertension) Hypertensive retinopathy Uveitis <Vick Reardon MD - Last Filed: 08/10/24 19:41> Surgical History Surgical History: Surgical History H/O dilation and curettage 1993 History of surgery on right wrist Hx of hysterectomy Status post breast reduction <Vick Reardon MD - Last Filed: 08/10/24 19:41> Family History Family History: Family History Father Hypertension Kidney disease Osteoarthritis Mother Hypertension Amyloidosis Osteoarthritis Sibling Hypertension <Vick Reardon MD - Last Filed: 08/10/24 19:41> Social History Social History: Social History (Updated 06/15/24 @ 09:43 by PERLA Lambert) Social History: Fiance Smoking status: Never smoker Second hand tobacco smoke exposure: No Alcohol intake: current Alcohol use details: rarely Substance use: never Substance use type: does not use Do You Feel Safe in your Home?: Yes Lack of Transportation: No Lack of Food: Never True Current Housing: I Have Housing Concerned About Future Housing: No Difficulty Paying Gas/Electric Bills: No Difficulty Paying for Meds: No Currently Unemployed: No Education: High School Diploma/GED Difficulty w/ Childcare or Family Care: No Living arrangements: with family Additional living arrangements comments: Pt lives with her fiance Occupation/Education: retired 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 Head: Swelling of the lower lip, no swelling of the tongue uvula or neck. EYES: EOMI, NOSE: Atraumatic NECK: Trachea midline RESPIRATORY: No increased rate of breathing Clear to auscultation CARDIOVASCULAR: RRR, no peripheral edema ABDOMINAL: Non-distended soft nontender guarding rebound MUSCULOSKELETAl: No obvious deformities NEURO: Alert. Moving 4/4 extremities SKIN:: Warm, dry. Normal color PSYCHIATRIC: Normal affect <Vick Reardon MD - Last Filed: 08/10/24 19:41> Course BACK HANGER/PA Physician Supervision Patient signed out to me by previous provider Dr. Reardon at 7:00 p.m.. Patient received medications for angioedema after suspected lisinopril induced reaction earlier this afternoon. Patient was re-evaluated multiple times and had decreasing swelling her anterior lower lip. Symptoms have been progressively improving since her visit here in the emergency department without any progression. No dysphonia, dysphagia, drooling, base of tongue swelling, tongue edema or any uvular edema. Patient's vital signs were monitored and stable. Patient was endorsed to me pending re-evaluation and discharge home if no progression. Patient was re-evaluated and stable for discharge home at this time. She was encouraged to see her primary care provider and instructed to completely stop taking her lisinopril. Patient verbalized understanding of these instructions and was given strict return precautions including any worsening edema, progression to anterior lip swelling, tongue swelling, dysphagia dysphonia or any other concerning features to herself and she expressed understanding of these instructions. Patient was stable for discharge home at this time and agreeable with plan of care. <Lam Cadet MD - Last Filed: 08/10/24 20:46> Vital Signs Vital signs: Vital Signs Pulse Rate 77 08/10/24 16:33 Respiratory Rate 27 H 08/10/24 16:33 Blood Pressure 186/100 H 08/10/24 16:33 Pulse Oximetry 100 08/10/24 16:33 Oxygen Delivery Room Air 08/10/24 16:33 Pulse Rate 73 08/10/24 17:41 Respiratory Rate 22 H 08/10/24 17:41 Blood Pressure 131/74 08/10/24 17:41 Pulse Oximetry 100 08/10/24 18:02 Oxygen Delivery Room Air 08/10/24 18:02 <Vick Reardon MD - Last Filed: 08/10/24 19:41> Vital Signs Pulse Rate 77 08/10/24 16:33 Respiratory Rate 27 H 08/10/24 16:33 Blood Pressure 186/100 H 08/10/24 16:33 Pulse Oximetry 100 08/10/24 16:33 Oxygen Delivery Room Air 08/10/24 16:33 Pulse Rate 73 08/10/24 17:41 Respiratory Rate 22 H 08/10/24 17:41 Blood Pressure 131/74 08/10/24 17:41 Pulse Oximetry 100 08/10/24 18:02 Oxygen Delivery Room Air 08/10/24 18:02 <Lam Cadet MD - Last Filed: 08/10/24 20:46> Medical Decision Making MDM Narrative Medical decision making narrative: -Course: 59-year-old female presenting with swelling of her lower lip in the setting lisinopril use. no involvement of the posterior oropharynx. Treated with Benadryl Pepcid dexamethasone and Epi. signed out to the oncoming physician pending re-evaluation. Expect discharge. -DDX includes but is not limited to: lisinopril induced angioedema, allergic reaction <Vick Reardon MD - Last Filed: 08/10/24 19:41> Vital Signs Vital Signs: Vital Signs Pulse Rate 77 08/10/24 16:33 Respiratory Rate 27 H 08/10/24 16:33 Blood Pressure 186/100 H 08/10/24 16:33 Pulse Oximetry 100 08/10/24 16:33 Oxygen Delivery Room Air 08/10/24 16:33 Pulse Rate 73 08/10/24 17:41 Respiratory Rate 22 H 08/10/24 17:41 Blood Pressure 131/74 08/10/24 17:41 Pulse Oximetry 100 08/10/24 18:02 Oxygen Delivery Room Air 08/10/24 18:02 <Vick Reardon MD - Last Filed: 08/10/24 19:41> Vital Signs Pulse Rate 77 08/10/24 16:33 Respiratory Rate 27 H 08/10/24 16:33 Blood Pressure 186/100 H 08/10/24 16:33 Pulse Oximetry 100 08/10/24 16:33 Oxygen Delivery Room Air 08/10/24 16:33 Pulse Rate 73 08/10/24 17:41 Respiratory Rate 22 H 08/10/24 17:41 Blood Pressure 131/74 08/10/24 17:41 Pulse Oximetry 100 08/10/24 18:02 Oxygen Delivery Room Air 08/10/24 18:02 <Lam Cadet MD - Last Filed: 08/10/24 20:46> Discharge Plan Discharge Clinical Impression: Angioedema, Adverse effect of lisinopril <Vick Reardon MD - Last Filed: 08/10/24 19:41> Patient Disposition: Home, Self-Care <Vick Reardon MD - Last Filed: 08/10/24 19:41> Condition: Stable <Vick Reardon MD - Last Filed: 08/10/24 19:41> Instructions: Antibiotic Form, Angioedema (ED) <Vick Reardon MD - Last Filed: 08/10/24 19:41> Additional Instructions: Please discontinue lisinopril as that is likely the cause of her swelling. Please follow-up with the physician wh is handling your blood pressure for further management. Return to the ED develop swelling of your tongue or throat, difficulty breathing, hives, or inability to handle your own secretions. <Vick Reardon MD - Last Filed: 08/10/24 19:41> Prescriptions: No Action bromfenac 0.07 % drops 1 drp EACH EYE ONCE lisinopril 40 mg tablet 40 mg PO DAILY Qty: 90 3RF atenolol 50 mg tablet 50 mg PO DAILY Qty: 90 3RF atorvastatin 80 mg tablet 80 mg PO DAILY Qty: 90 3RF lorazepam [Ativan] 0.5 mg tablet 0.5 mg PO BID PRN (Reason: Anxiety) Qty: 30 0RF acetaminophen [Tylenol] 325 mg tablet 650 mg PO ONCE PRN (Reason: Pain) estradiol 1 mg tablet 1 mg PO DAILY fluticasone propionate 50 mcg/actuation spray,suspension 2 spray NASAL DAILY PRN (Reason: allergies) aspirin 81 mg tablet,delayed release (DR/EC) 81 mg PO DAILY Qty: 90 1RF ibuprofen 600 mg tablet 600 mg PO TID PRN (Reason: Pain) Qty: 90 5RF hydrochlorothiazide 25 mg tablet 25 mg PO DAILY Qty: 90 3RF pantoprazole 40 mg tablet,delayed release (DR/EC) 40 mg PO BID Qty: 90 1RF <Vick Reardon MD - Last Filed: 08/10/24 19:41> Follow-up/Referrals: Noel Sierra MD [Primary Care Provider] - <Vick Reardon MD - Last Filed: 08/10/24 19:41> Time of Disposition: 20:46 <Vick Reardon MD - Last Filed: 08/10/24 19:41> 20:46 <Lam Cadet MD - Last Filed: 08/10/24 20:46>
== END 2024-08-10 21:09 | disposition home or self-care (01) ==
PROVIDERS: Emergency Provider Emergency Medicine; PCP Family Medicine
DX: T78.3XXA Angioneurotic edema, initial encounter (principal); T46.4X5A Adverse effect of angiotensin-converting-enzyme inhibitors, initial encounter; I10 Essential (primary) hypertension; E78.5 Hyperlipidemia, unspecified; K21.9 Gastro-esophageal reflux disease without esophagitis; M19.90 Unspecified osteoarthritis, unspecified site; Z90.710 Acquired absence of both cervix and uterus; Z79.82 Long term (current) use of aspirin; Z79.899 Other long term (current) drug therapy
CPT/HCPCS: 96374; 96375; 99284; J0171; J1200

== ENCOUNTER 2024-11-21 09:02 | Outpatient (CLI) | payer OTHER, SELFPAY ==
--- NOTE | ~2024-11-21 | MM_ITS ---
EXAMINATION: MM screening [facility] BI w vilma HISTORY: Screening mammogram TECHNIQUE: Craniocaudal and mediolateral oblique 3-D tomosynthesis images were obtained and synthetic 2-D images were generated. CAD analysis was submitted and interpreted. COMPARISON: 10/25/2023, 09/21/2022, 07/23/2021 BREAST PARENCHYMAL COMPOSITION:Not Dense. There are scattered areas of fibroglandular density. FINDINGS: No suspicious mass, calcification, or architectural distortion are identified in either hailee ast to suggest malignancy. There has been no suspicious interval change. IMPRESSION: No mammographic evidence of malignancy. Recommend routine screening mammography in one year. BI-RADS Category 1: Negative Reviewed, dictated and finalized at location . TERIA HELPER
--- OUTSIDE RECORDS SUMMARY | 2024-11-21 09:33 | XMS_ITS | Data Portability ---
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 It has been a little over 3 months since her last cortisone injection both her knees. She has severe bicompartmental osteoarthritis of the right knee and moderately severe medial compartment arthritis in left. Shots continue to work well for. She had a recent twisting injury to the right knee that happened in September. She had a lot of severe pain, fortunately this is improved. She remains taking ibuprofen 600 mg once or twice a day which she thinks helped her symptoms. She wished to have additional injections today. Physical exam: 57-year-old female alert pleasant. She is 5 ft 1 in 205 lb her BMI is 38 point. She has ckvo-kk-gehhvawn effusion in the right knee mild effusion left. Left range of motion is from 5-130 and on right it is 20-120 degrees. There is no increased swelling in either extremity. Moderate tenderness over both medial joint lines. ChloraPrep was used on skin 20 mg Kenalog and 3 cc of 0.5% ropivacaine was injected into both knees. Risk infection discussed. Impression: 57-year-old female has rather severe bicompartmental osteoarthritis in the right knee with significant flexion contracture. She has moderately severe medial compartment osteoarthritis in the left knee. She does continue good relief from injections. She understands at some point she is going to need total knee arthroplasties to both of knees but is open put off as long as possible. She will continue the ibuprofen. She is going to be going on a trip in February and would like to have injections about a week for trip and we will set this up for her and see her at that time. 20 minutes was spent to treatment patient with than half of this in owug-[id number] conversation Not available 12/10/2022 14:48:23 02/18/2023 02/18/2023 HPI: Patient returns. She is here for cortisone injection both her knees. Last shots were 3 months ago. She remains on the ibuprofen regular shots at this point continue her excellent relief for almost 3 months. She has severe bicompartmental osteoarthritis the right knee and moderate medial compartment osteoarthritis in left. Physical exam: 58-year-old female very alert pleasant. Her right knee has a mild effusion to the left knee has a mild effusion. Range of motion left knee is from 3-135 and on the right is 25 to 95. There is no increased swelling in either lower extremity. After ChloraPrep was used on skin 20 mg Kenalog and 3 cc of 0.5% ropivacaine was injected both knees. Risk infection discussed. Impression: 58-year-old female who has severe osteoarthritis of the right knee with significant loss of motion. She also has moderate medial compartment osteoarthritis in left. At this point her symptoms remain tolerable. I will see her back in 3 months repeat injection. Not available 02/18/2023 15:27:10 05/18/2023 05/18/2023 HPI: Patient returns. She is here for cortisone injection both of her knees. She has severe osteoarthritis in the right knee and moderately severe. Last shots were 3 months ago. They do help quite a bit. She has lost 15 lb since I saw last which she is going to be helping with her symptoms well. She uses ibuprofen 600 mg 3 times a day and will supplement that with Tylenol on as-needed basis. She wished to have additional injections today. Physical exam: 58-year-old female very alert pleasant. Has about a 20 degree flexion contracture in the right knee, and about 5 degree flexion contracture in the left. Mild effusions in both knees. No increased swelling in either lower extremity. After ChloraPrep was used on skin 20 mg Kenalog and 3 cc of 0.5% ropivacaine was injected into both knees. Risk infection discussed. Impression: 58-year-old female who has right greater than left osteoarthritis in both knees with the right 1 having severe osteoarthritis. She continues do well with injections. I will see her in 3 months. Not available 05/18/2023 14:49:26 08/10/2023 08/10/2023 HPI: Patient returns. She is here for cortisone injection in both her knees. Last shot was 3 months ago. She is getting about 2 months good relief. Last month she has had more symptoms in the knee. She has rather severe bicompartmental osteoarthritis of the right knee and moderately severe medial compartment osteoarthritis of the. She takes ibuprofen 600 mg 2 or 3 times a day depending on symptoms. This works well for her. She wishes to continue with injections. Physical exam: 58-year-old female alert pleasant. She is 5 ft 1 and 180 lb today. She was 201 lb earlier this year she is doing well with her weight loss should sugar is also helping with her symptoms. Her right knee range of motion is from 20-125 degrees. On the left it is 0-135 degrees. Mnzh-bj-izfzpvsx tenderness over both medial joint lines to palpation. She walks with a mild limp due to the flexion contracture in the right knee. After ChloraPrep used on skin 20 mg Kenalog and 3 cc of 0.5% ropivacaine was injected in both knees. Risk of infection discussed. Impression: 58-year-old female who has rather severe bicompartmental osteoarthritis of the right knee with significant flexion contraction. She also has moderately severe medial compartment osteoarthritis in the left knee. Shots continue to well for her. She is going to make an appointment to come back in early December for additional injections. She has a trip planned at the end December and is going to put off the injections for at least a little bit so that she can and maximal improvement on her trip. Not available 08/10/2023 14:38:01 11/18/2023 11/18/2023 HPI: Patient returns. She is here for cortisone injections into both of her knees. Last shots were 3 months ago. She does continue to get good relief from the injections. She remains taking ibuprofen 600 mg 3 times a day. She has about taking Tylenol with this and we talked about maximum dosing for Tylenol and she is going to experiment with taking this little bit more. Patient recently had the severe reaction to IV contrast for a CT scan was done of her sinuses. She states that she had swelling in her body and had a spike in her blood pressure for several days. This sounded like her kidneys were reacting to the IV contrast. Patient has a history of amyloidosis and she has a lot of reactions to different medications. 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 She has been recently asked by a research group if she would like to have steady work done on her amyloidosis since this is not a common thing and they are trying to learn more about this. She is thinking about joining this research group. Today she wished to have injections in both knees. Physical exam: 58-year-old female alert pleasant. She walks with a mild limp. She has about a 20 degree flexion contracture in the right knee and flexes to 110 on the left range motion is from 7-125 degrees. She has trace edema in both lower extremities. 2+ dorsalis pedis pulse. Kiyk-xl-aqxrxvfd tenderness over both medial and lateral joint lines in both knees. After alcohol prep 20 mg Kenalog and 3 cc of 0.5% ropivacaine was injected into both knees. I did not use Betadine on her because she has had reactions to iodine on the skin in the past. Impression: 58-year-old female who has rather severe osteoarthritis in the right knee and now csdw-qv-yymh in the medial compartment in the left. Shots continue to give her good relief and benefit and she is going to continue with these at this point. We did talk quite a bit about surgery in the future. Given her history of allergic reactions to medications as well as IV dye. I think that she needs to have her amyloidosis thoroughly evaluated so that we have a good understanding of possible medication reactions or problems that could be worrisome in doing a total knee arthroplasty on her. . In 3 months for additional injection Not available 11/18/2023 12:31:14 Plan of Treatment Reminders Order Date Submit Date Provider Last Modified By Organization Details Last Modified Time Details Appointments None recorded. Lab None recorded. Referral None recorded. Procedures injection/a spiration joint/bursa (PROC) - in office procedure, administere d by provider 2023 024 [email or web address] In-Office Order, Internal Use Only DO Not Attach Compendium DO Not Attach Compendium, Do Not Delete/merge, [id number] 4 11:34:21 injection/a spiration joint/bursa (PROC) - in office procedure, administere d by provider 2022 023 [email or web address] In-Office Order, Internal Use Only DO Not Attach Compendium DO Not Attach Compendium, Do Not Delete/merge, [id number] 3 14:10:20 injection/a spiration joint/bursa (PROC) - in office procedure, administere d by provider 2022 023 [email or web address] In-Office Order, Internal Use Only DO Not Attach Compendium DO Not Attach Compendium, Do Not Delete/merge, [id number] 3 14:36:41 injection/a spiration joint/bursa (PROC) - in office procedure, administere d by provider 2022 023 [email or web address] In-Office Order, Internal Use Only DO Not Attach Compendium DO Not Attach Compendium, Do Not Delete/merge, [id number] 3 14:23:50 injection/a spiration joint/bursa (PROC) - in office procedure, administere d by provider 2022 023 [email or web address] In-Office Order, Internal Use Only DO Not Attach Compendium DO Not Attach Compendium, Do Not Delete/merge, [id number] 3 14:02:32 Surgeries None recorded. Imaging XR, knee [address] [place], [facility], [place], [address], 4 14:14:48 Medication Orders Kenalog 10 mg/mL suspension for injection [address] [address] [facility], [address], [place], [address], 4 14:14:48 ropivacaine (PF) 5 mg/mL (0.5 %) injection solution 2023 024 [email or web address] [facility], [address], [place], [address], 4 14:14:48 Kenalog 10 mg/mL suspension for injection [address] [facility], [address], [place], [address], 3 14:45:21 ropivacaine (PF) 5 mg/mL (0.5 %) injection solution [address] [facility], [address], [place], [address], 3 14:45:21 Kenalog 10 mg/mL suspension for injection [address] [facility], [address] [place], [address], 3 14:50:48 ropivacaine (PF) 5 mg/mL (0.5 %) injection solution [address] [facility], [address], [place], [address], 3 14:50:48 Kenalog 10 mg/mL suspension for injection [address] [facility], [address] [place], [address], 3 15:46:21 ropivacaine (PF) 5 mg/mL (0.5 %) injection solution [address] [facility], [address], [place], [address], 3 15:46:21 Kenalog 10 mg/mL suspension for injection [address] [facility], [address] [place], [address], 3 14:07:55 ropivacaine (PF) 5 mg/mL (0.5 %) injection solution [address] [facility], [address] [facility], [place], [address], 3 14:07:55 Patient TargetsNo targets recorded. Patient InstructionsNo instructions recorded. Reason for Referral None Reported. Results Created Date Observation Date Name Description Value Unit Range Abnormal Flag Note LastModifiedBy Organization Detail LastModifiedTime 11/18/19 24 XR, knee No observ ation record ed. [address] [place] [address], [place], [address], 11/18/2023 12:27:15 Result Notes None recorded. Problems Name Problem SNOMED Code Status Onset Date Resolution Date Notes Provider Name and Address Organization Details Recorded Time Osteoarthr itis of knee 580334640 Active Not Available [facility] 3 00:55:43 Osteoarthr itis 989806658 Active 2021 Not Available [facility] 3 00:55:43 Bilateral osteoarthr itis of knees 4204467758875 07 Active 2022 PERLA Diggs, [place] [facility] 3 14:20:38 Problem Notes None recorded. Procedures Surgical History Date Name Laterality Status Provider Name and Address Organization Details Recorded Time Hysterectomy completed Not Available [facility] 11/17/2022 00:49:03 procedure on wrist completed Not Available [facility] 11/17/2022 00:49:03 Imaging Results Imaging Date Name Status LastModified by Organiz ation Details LastModified Time 11/18/2023 XR, knee completed [address] [place] [address], [place], [address], 11/18/2023 12:27:15 Procedure Notes None recorded. Medical Equipment None Reported. Allergies Allergen ID Allergen Name Allergen Category Reaction Reaction Severity Criticality Documentation Date Start Date Code Code System Note Provider Name and Address Organization Details Recorded Time 1382 Substance with sulfonami de structure and antibacte rial mechanism of action (substanc e) medicatio n Not available Not available Not available 11/17/2022 22161 8003 SNOMED Not Available [facility] 3 01:02:41 1383 Macrobid medicatio n Not available Not available Not available 11/17/2022 35489 1 RxNorm Not Available [facility] 3 01:02:41 Medications Name Sig Start Date Stop Date Status Note LastModified by Organization Details LastModified Time verapamil ER (SR) 120 mg tablet,exte nded release 07/11 completed Not Available Not Available Not Available cyclobenzap rine 10 mg tablet TAKE 1 TABLET BY MOUTH THREE TIMES DAILY NEEDED FOR MUSCLE SPASM active Not Available Not Available No t Available amoxicillin 500 mg capsule 12/10 completed Not Available Not Available Not Available atorvastati n 80 mg tablet TAKE 1 TABLET BY MOUTH ONCE DAILY active Not Available Not Available No t Available prednisone 10 mg tablet 11/17 completed Not Available Not Available Not Available atorvastati n 20 mg tablet 11/17 completed Not Available Not Available Not Available azithromyci n 250 mg tablet 11/05 completed Not Available Not Available Not Available valacyclovi r 1 gram tablet 06/27 completed Not Available Not Available Not Available lisinopril 20 mg tablet TAKE 1 TABLET BY MOUTH ONCE DAILY active Not Available Not Available No t Available bupivacaine HCl 0.5 % (5 mg/mL) injection solution In office injection administe red by the provider 12/10 completed Not Available Not Available Not Available prednisone 20 mg tablet TAKE 1 TABLET BY MOUTH TWICE DAILY FOR 5 DAYS active Not Available Not Available No t Available verapamil ER (SR) 180 mg tablet,exte nded release 05/19 completed Not Available Not Available Not Available penicillin V potassium 500 mg tablet TAKE 1 TABLET BY MOUTH 4 TIMES DAILY UNTIL GONE active Not Available Not Available No t Available metronidazo le 500 mg tablet 06/27 completed Not Available Not Available Not Available chlorthalid one 25 mg tablet TAKE 1 TABLET BY MOUTH ONCE DAILY active Not Available Not Available No t Available amlodipine 5 mg tablet 06/27 completed Not Available Not Available Not Available ciprofloxac in 500 mg tablet TAKE 1 TABLET BY MOUTH TWICE DAILY FOR 5 DAYS 11/17 completed Not Available Not Available Not Available aspirin 81 mg tablet,mendoza yed release TAKE 1 TABLET BY MOUTH ONCE DAILY active Not Available Not Available No t Available dexamethaso ne sodium phosphate 0.1 % eye drops INSTILL ONE DROP INTO THE AFFECTED EYE THREE TIMES DAILY FOR 1 WEEK THEN TWICE DAILY FOR 1 WEEK. active Not Available Not Available No t Available pantoprazol e 20 mg tablet,mendoza yed release TAKE 1 TABLET BY MOUTH ONCE DAILY IN THE MORNING 11/17 completed Not Available Not Available Not Available ketorolac 0.5 % eye drops INSTILL 1 DROP INTO EACH EYE THREE TIMES DAILY FOR ONE WEEK, THEN TWICE DAILY FOR 1 WEEK, THEN DAILY. active Not Available Not Available No t Available meloxicam 7.5 mg tablet 06/27 completed Not Available Not Available Not Available lorazepam 0.5 mg tablet TAKE 1 TABLET BY MOUTH ONCE DAILY NEEDED FOR ANXIETY active Not Available Not Available No t Available estradiol 1 mg tablet TAKE 1 TABLET BY MOUTH ONCE DAILY active Not Available Not Available No t Available Kenalog 10 mg/mL suspension for injection in office 2023 active [facility]: [phone] Not Available Not Available Not Available benzonatate 100 mg capsule 07/11 completed Not Available Not Available Not Available pantoprazol e 40 mg tablet,mendoza yed release TAKE 1 TABLET BY MOUTH IN THE MORNING active Not Available Not Available No t Available oseltamivir 75 mg capsule 07/11 completed Not Available Not Available Not Available fluorometho lone 0.1 % eye drops,suspe nsion INSTILL 1 DROP INTO EACH EYE ONCE DAILY NEEDED 2022 active Not Available Not Available Not Avai lable diclofenac sodium 75 mg tablet,mendoza yed release Take 1 tablet twice a day by oral route. 08/17 completed Not Available Not Available Not Available hydrochloro thiazide 25 mg tablet TAKE 1 TABLET BY MOUTH ONCE DAILY 11/17 completed Not Available Not Available Not Available azelastine 137 mcg (0.1 %) nasal spray USE 1 TO 2 SPRAY(S) IN EACH NOSTRIL TWICE DAILY 11/17 completed Not Available Not Available Not Available ibuprofen 600 mg tablet TAKE 1 TABLET BY MOUTH THREE TIMES DAILY NEEDED FOR PAIN active Not Available Not Available No t Available levofloxaci n 500 mg tablet 07/11 completed Not Available Not Available Not Available methylpredn isolone 4 mg tablets in a dose pack TAKE BY MOUTH DIRECTED ON INSIDE OF PACKAGE 12/10 completed Not Available Not Available Not Available timolol maleate 0.5 % eye drops INSTILL 1 DROP INTO EACH EYE TWICE DAILY active Not Available Not Available No t Available ondansetron 4 mg disintegrat ing tablet DISSOLVE 1 TABLET IN MOUTH EVERY 6 HOURS NEEDED FOR NAUSEA AND VOMITING active Not Available Not Available No t Available fluticasone propionate 50 mcg/actuati on nasal spray,suspe nsion 06/27 completed Not Available Not Available Not Available doxycycline hyclate 100 mg tablet TAKE 1 TABLET BY MOUTH TWICE DAILY FOR 7 DAYS 12/10 completed Not Available Not Available Not Available atenolol 50 mg tablet TAKE 1 TABLET BY MOUTH ONCE DAILY active Not Available Not Available No t Available Lotemax 0.5 % eye drops,suspe nsion 06/27 completed Not Available Not Available Not Available amoxicillin 875 mg-potassiu m clavulanate 125 mg tablet TAKE 1 TABLET BY MOUTH EVERY 12 HOURS 11/17 completed Not Available Not Available Not Available tobramycin 0.3 %-dexametha sone 0.1 % eye drops,suspe nsion INSTILL 1 DROP INTO EACH EYE 4 TIMES DAILY FOR 3 DAYS, THEN 1 DROP 3 TIMES DAILY FOR 3 DAYS, THEN 1 DROP TWICE DAILY FOR 3 DAYS, THEN 1 DROP ONCE DAILY FOR 3 DAYS. 12/10 completed Not Available Not Available Not Available bromfenac 0.09 % eye drops active Not Available Not Available Not Available lidocaine (PF) 10 mg/mL (1 %) injection solution In office injection administe red by the provider 12/10 completed [facility]: [phone]- [phone] Not Available Not Available Not Available lidocaine (PF) 5 mg/mL (0.5 %) injection solution In office injection administe red by the provider 12/10 completed Not Available Not Available Not Available ProAir HFA 90 mcg/actuati on aerosol inhaler 07/11 completed Not Available Not Available Not Available ropivacaine (PF) 5 mg/mL (0.5 %) injection solution in office 2023 active [facility] [phone] -[phone] Not Available Not Available Not Available Fluzone Quad (PF) 60 mcg (15 mcg x 4)/0.5 mL IM syringe PHARMACIS T ADMINISTE RED IMMUNIZAT ION ADMINISTE RED AT TIME OF DISPENSIN G active Not Available Not Available No t Available Vitals Date Recorded Body height Body mass index (BMI) Body weight Provider Name and Address Organization Details Last Updated DateTime 12/10/2022 156.21 cm 38.1 kg/m2 14154.44 zenaida Sinhagemasourav [facility] [employer] [facility] 12/10/2022 14:18:26 Date Recorded Body height Provider Name an d Address Organization Details Last Updated DateTime 02/18/2023 156.21 cm Beatriz Muñoz [facility] [employer] [facility] 02/18/2023 14:20:22 Date Recorded Body height Provider Name an d Address Organization Details Last Updated DateTime 05/18/2023 156.21 cm Beatriz Muñoz [facility] [employer] [facility] 05/18/2023 14:35:17 Date Recorded Body height Body mass index (BMI) Body weight Provider Name and Address Organization Details Last Updated DateTime 08/10/2023 156.21 cm 35.1 kg/m2 60947.52 [facility]ida [facility] [employer] [facility] 08/10/2023 14:23:25 Date Recorded Body height Provider Name an d Address Organization Details Last Updated DateTime 11/18/2023 156.21 cm Beatriz Muñoz [facility] [employer] [facility] 11/18/2023 11:32:06 Social History Question Answer Notes LastModified by Organizat ion Details LastModified Time Tobacco Smoking Status Never Smoker Not Available [employer] 11/17/2022 00:48:56 What Is Your Level Of Alcohol Consumption? None [email or web address] Information not available 12/10/2022 What Was The Date Of Your Most Recent Tobacco Screening? 11/17/2020 [id number] Information not available 11/17/2022 Sex: Unknown Functional Status None recorded. Mental Status None recorded. Family History Relationship Description Onset Age of this Age Resolved Age Notes LastModified by Organization Details LastModified Time Father Diabetes mellitus [email or web address] Not available 2022 14:20:24 Father Kidney disease [email or web address] Not available 2022 14:20:29 Father Hypertensive disorder [email or web address] Not available 2022 14:20:15 Mother Family history of malignant neoplasm [email or web address] Not available 2022 14:20:08 Mother Heart disease [email or web address] Not available 2022 14:20:03 Mother Hypertensive disorder [email or web address] Not available 2022 14:20:18 Medical History Condition Response BLINDNESS N KIDNEY STONES N MRSA N CARPAL TUNNEL SYNDROME N LUNG DISEASE/DISORDER N HISTORY OF DRUG ABUSE N RADIATION / CHEMOTHERAPY N COPD N SPORTS INJURY N ANKLE PAIN N BLOOD DISEASES N SCHIZOPHRENIA N SHINGLES N BOWEL PROBLEMS N SHOULDER PAIN N DEPRESSION (INCLUDING POST ) N STROKE/TIA N KNEE PAIN N ULCERS N BENIGN PROSTATIC HYPERPLASIA N OBESITY N GERD/NAUSEA N ANEURYSM N URINARY/BLADDER/KIDNEY PROBLEMS N CORONARY ARTERY DISEASE (CAD) N ADDICTION CONCERNS N USE OF BLOOD THINNERS N SKIN PROBLEMS N EMPHYSEMA N MUSCLE,JOINT OR BONE PROBLEMS N DVT N STOMACH ULCERS N BLOOD CLOTS N USE OF NSAIDS N CONCUSSION OR SPINAL TRAUMA N NEUROPATHY N AIDS/HIV N FRACTURES N ELBOW PAIN N HYPERTENSION Y TOURETTE'S N ANXIETY DISORDER N Metal allergy N BLOOD TRANSFUSION N ANEMIA/BLOOD DISORDER N BIPOLAR DISORDER N BRONCHITIS N OSTEOARTHRITIS N TUBERCULOSIS N FOOT PROBLEM N HEART VALVE DISORDERS N ALLERGIES/HAYFEVER N SOFT TISSUE INJURY N INFECTIOUS DISEASE N HEART ARRHYTHMIA N INSOMNIA N RHEUMATOID ARTHRITIS N HIGH CHOLESTEROL / HYPERLIPIDEMIA N EDEMA N CHRONIC PAIN SYNDROME N CAROTID BLOCKAGE N BACK / NECK PROBLEMS N HAVE YOU BEEN HOSPITALIZED OR SEEN IN [facility] IN THE PAST YEAR ? N BURSITIS N HERNIATED DISC N DIALYSIS N FIBROMYALGIA N OSTEOPOROSIS N ARTHRITIS Y NO SIGNIFICANT PAST MEDICAL HISTORY N PERIPHERAL NEUROPATHY N DIABETES, TYPE N HEARTBURN / REFLUX N HEPATITIS / LIVER DISEASE N GOUT N SLEEP DISORDER N ALZHEIMER'S DISEASE N HERPES N SEIZURES/EPILEPSY N HEADACHES/MIGRAINES N VASCULAR DISEASE N HIP PAIN N Blood Disorder N DIZZINESS N HEAD TRAUMA OR INJURY N HEART DISEASE/HEART PROBLEMS N MULTIPLE SCLEROSIS N CARDIAC ARRHYTHMIA N CANCER: SPECIFY N ANESTHESIA COMPLICATIONS N ATRIAL FIBRILLATION N AUTOIMMUNE DISEASE N Gynecological HistoryNo gynecological history recorded. Obstetrics History GPAL:G 0 P 0 0 0 0 Past Encounters Encounter ID Performer Location Encounter Start Date Encounter Closed Date Diagnosis/Indication Diagnosis SNOMED-CT Code Diagnosis ICD10 Code Diagnosis Note [id number] [facility] [address] [place] [address] 11/17/2020 00:00:00 11/17/2020 15:11:28 [id number] [facility] [address] [place] [address] 02/18/2021 00:00:00 02/18/2021 17:18:29 [id number] [facility] [address] [place] [address] 05/18/2021 00:00:00 05/18/2021 17:56:39 [id number] [facility] [address] [place] [address] 08/17/2021 00:00:00 08/17/2021 18:04:08 [id number] [facility] [address] [place] [address] 11/16/2021 00:00:00 11/16/2021 18:05:16 [id number] [facility] [address] [place] [address] 02/24/2022 00:00:00 02/24/2022 15:25:55 [id number] [facility] [address] [place] [address] 06/04/2022 00:00:00 06/04/2022 14:25:23 [id number] [facility] [address] [place] [address] 09/15/2022 00:00:00 09/15/2022 16:28:01 [id number] TEO Herbert [facility] [address] [place] [address] 12/10/2022 13:57:36 12/10/2022 16:05:52 Osteoarthritis [id number] M17.0 [id number] Maldonado Zaiz, PA [facility] [address] [place] [address] 02/18/2023 14:16:35 02/18/2023 15:29:33 Bilateral osteoarthritis of knees [id number] M17.0 [id number] Maldonado Pritchett PA [facility] [address] [place] [address] 05/18/2023 14:31:45 05/18/2023 14:56:27 Bilateral osteoarthritis of knees [id number] M17.0 [id number] Maldonado Pritchett PA [facility] [address] [place] [address] 08/10/2023 14:04:38 08/10/2023 14:47:52 Bilateral osteoarthritis of knees [id number] M17.0 [id number] TEO Herbert [facility] [address] [place] [address] 11/18/2023 11:16:39 11/18/2023 12:53:19 Bilateral osteoarthritis of knees [id number] 53355 M17.0 Health Concerns Section Related Observation LastModified by Organization Detai ls LastModified Time None Recorded Concern Status LastModified by Organization Details LastModified Time None Recorded Advance Directives Directive None Recorded Payers Encounter Date Sequence Insurance Name Policy Number Policy Celis Covered Member ID Celis Member ID Guarantor Name 12/10/2022 1 [employer] Aisha R Hector [id number] [id number] Aisha R Hector 02/18/2023 1 [employer] Aisha R Hector [id number] OI Aisha R Hector 05/18/2023 1 [employer] Aisha R Hector [id number] [id number] Aisha R Hector 08/10/2023 1 [employer] Aisha R Hector [id number] OI Aisha R Hector 11/18/2023 1 [employer] Aisha R Hector [id number] OI Aisha [facility] OBG[facility] Episode No OBEpisode recorded.
--- OUTSIDE RECORDS SUMMARY | 2024-11-21 09:33 | XMS_ITS | Referral Summary ---
Author Organization [facility] Address [address] [place] [address] Care Team Providers Care Attorney Name Role Phone Noel Sierra MD Primary Care Provider Referral, Self Unavailable Unavailable Berto Chaves MD PhD Unavailable [phone] Encounters Date Type Department Care Team Description 09/17/2024 Telephone [facility] Cardiology [address] [facility] Medicine 8th [place] [address] [place] [address] Todd Adorno MD PhD 09/14/2024 Telephone [facility] Cardiology [address] [facility] 8th [place] [address] [place] [address] Todd Adorno MD PhD higher home bp; ER records from Last 3 Months Allergies Active Allergy Reactions Criticality Noted Date Comments Atenolol-Chlorthalidone Hives,Other (See comments) Medium 12/15/2023 Blurred vision, hoarseness Iodinated Contrast Media Edema High 11/25/2023 Severe systemic edema, slceral edema Cortisone Other (See comments) Medium 04/14/2020 Eye pressure; severe hyptertension Lisinopril Swelling High 09/17/2024 Was seen in local ER for significant acute lip swelling thought to secondary to lisinopril. Methylprednisolone Hives High 09/16/2022 Broke out in hives on face and arms. Heart rate was high from reaction. Nitrofurantoin Monohyd/M-Cryst Hives,Swelling Medium 07/19/2019 [place] Hives,Swelling Medium 07/19/2019 Increased eye pressure [place] Hives,Swelling Medium 07/19/2019 Sulfa (Sulfonamide Antibiotics) Hives,Swelling Medium 07/19/2019 Medications atenolol (TENORMIN) 50 mg tabletIndications: Amyloidosis, unspecified type (HCC) Take 1 tablet (50 mg total) by mouth daily 2 9 Active estradiol (ESTRACE) 1 mg tabletIndications: Amyloidosis, unspecified type (HCC) Take 1 tablet (1 mg total) by mouth daily 3 9 Active cyclobenzaprine (FLEXERIL) 10 mg tabletIndications: Amyloidosis, unspecified type (HCC) Take 1 tablet (10 mg total) by mouth 3 (three) times a day as needed for muscle spasms Active LORazepam (ATIVAN) 0.5 mg tabletIndications: Amyloidosis, unspecified type (HCC) Take 1 tablet (0.5 mg total) by mouth every 6 (six) hours as needed for anxiety Active brimonidine 0.025 % dropsIndications:A myloidosis, unspecified type (HCC) Administer into affected eye(s) as needed Active ibuprofen (ADVIL,MOTRIN) 600 mg tablet Take 1 tablet (600 mg total) by mouth 3 (three) times a day Active aspirin 81 mg enteric coated tablet Take 1 tablet (81 mg total) by mouth daily 30 tablet 11 9 Active atorvastatin (LIPITOR) 80 mg tabletIndications: Mixed hyperlipidemia,Ar ropathic heredofamilial amyloidosis (HCC),Essential hypertension Take 1 tablet (80 mg total) by mouth nightly 90 tablet 3 9 Active fluticasone propionate (FLONASE) 50 mcg/actuation nasal spray Administer 1 spray into each nostril daily Active pantoprazole DR (PROTONIX) 40 mg EC tablet Take 1 tablet (40 mg total) by mouth daily 2 Active timolol (TIMOPTIC) 0.5 % ophthalmic solution 1 drop 2 (two) times a day 2 Active ondansetron ODT (ZOFRAN-ODT) 4 mg disintegrating tablet DISSOLVE 1 TABLET IN MOUTH EVERY 6 HOURS NEEDED FOR NAUSEA AND VOMITING 4 Active hydroCHLOROthiazid e (HYDRODIURIL) 25 mg tablet Take 1 tablet (25 mg total) by mouth daily 4 Active amLODIPine (NORVASC) 5 mg tabletIndications: Essential hypertension Take 1 tablet (5 mg total) by mouth daily 30 tablet 11 4 025 Active Active Problems Problem Noted Date Diagnosed Date Amyloidosis 07/13/2024 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 family history of AL Amyloidosis (currently no evidense of Amyloid) - patient is currently asymptomatic, had mutation analysis done due to her mother having AL Amyloid and Cardic dz, follows with Dr. 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 Never 08/10/2024 Average Number of Drinks Not on file 024 Frequency of Binge Drinking Not on file 07/21 Personal Safety Answer Date Recorded Have you ever been in or are you currently in a harmful physical or emotional relationship or is someone making you feel afraid or unsafe? Denies 08/10/2024 Comments No Sex and Gender Information Value Date Recorded Sex Assigned at Not on file Legal Sex Female 12:52 PM ASSOCIATE PASTOR Gender Identity Not on file Sexual Orientation Not on file Last Filed Vital Signs Vital Sign Reading Time Taken Comments Blood Pressure 115/71 08/10/2024 8:12 AM ASSOCIATE PASTOR Pulse 64 08/10/2024 8:12 AM ASSOCIATE PASTOR Temperature 36.1 C (97 F) 08/10/2024 7:52 AM ASSOCIATE PASTOR Respiratory Rate 18 08/10/2024 8:12 AM ASSOCIATE PASTOR Oxygen Saturation 98% 08/10/2024 8:12 AM ASSOCIATE PASTOR Inhaled Oxygen Concentration - - Weight 76.2 kg (168 lb) 08/10/2024 6:54 AM ASSOCIATE PASTOR Height 154.9 cm (5' 1 ) 08/10/2024 6:54 AM ASSOCIATE PASTOR Body Mass Index 31.74 08/10/2024 6:54 AM ASSOCIATE PASTOR Plan of Treatment Scheduled Procedures Name Priority Associated Diagnoses Date/Ti me ESOPHAGOGASTRODUODENOSCOPY Open Access Amyloidosis, unspecified type (FORMERLY [facility]) Insurance [place] [id number] [facility] [id number] [address] [place] [id number] [facility] [id number] [facility] [id number] Advance Directives For more information, please contact: [phone] * Full Code (Latest Code Status on File) Date Activated Date Inactivated Comments 08/10/2024 6:48 AM 08/10/2024 12:31 PM Care Teams Attorney Relationship Specialty Start Date End Date Noel Sierra MD [address] [facility] [address] [place] [address] PCP - General 12/17/16 Referral, Self 06/22/19 Berto Chaves MD PhD Consulting Physician Medical Oncology 06/22/19
--- OUTSIDE RECORDS SUMMARY | 2024-11-21 09:33 | XMS_ITS | Clinical Summary ---
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 10/11/ 2024 Assessment & Plan (06/29/2024 4:00 PM CDT): [...] of amyloidosis 06/22/2019 Overview (11/17/2020): V122i by Tutor Encounters Date Type Department Care Team Description 09/17/2024 Telephone [facility] Cardiology [address] [facility] Medicine [address]th [place] [address] [place] [address] Todd Adorno MD PhD 09/14/2024 Telephone [facility] Cardiology [address] [facility] Medicine [address]th [place] [address] [place] [address] Todd Adorno MD PhD higher home bp; ER records from Last 3 Months Surgical History Surgery Date Site/Laterality Comments UPPER GASTROINTESTINAL ENDOSCOPY HYSTERECTOMY REDUCTION MAMMAPLASTY WRIST SURGERY Right Medical History Medical History Date Comments GERD (gastroesophageal reflux disease) Hypertension Amyloidosis (HCC) Weight loss Loss of appetite Family History Medical History Relation Name Comments Diabetes Father Hypertension Father Cancer Mother Heart failure Mother Hypertension Mother Relation Name Status Comments Father Mother Social History Tobacco Use Types Packs/Day Years [...] on file Legal Sex Female 12:52 PM TISSUE TECHNOLOGIST Gender Identity Not on file Sexual Orientation Not on file Obstetrics History Last Filed Vital Signs Vital Sign Reading Time Taken Comments Blood Pressure 115/71 08/10/2024 8:12 AM TISSUE TECHNOLOGIST Pulse 64 08/10/2024 8:12 AM TISSUE TECHNOLOGIST Temperature 36.1 C (97 F) 08/10/2024 7:52 AM TISSUE TECHNOLOGIST Respiratory Rate 18 08/10/2024 8:12 AM TISSUE TECHNOLOGIST Oxygen Saturation 98% 08/10/2024 8:12 AM TISSUE TECHNOLOGIST Inhaled Oxygen Concentration - - Weight 76.2 kg (168 lb) 08/10/2024 6:54 AM TISSUE TECHNOLOGIST Height 154.9 cm (5' 1 ) 08/10/2024 6:54 AM TISSUE TECHNOLOGIST Body Mass Index 31.74 08/10/2024 6:54 AM TISSUE TECHNOLOGIST Plan of Treatment Scheduled Procedures Name Priority Associated Diagnoses Date/Ti me ESOPHAGOGASTRODUODENOSCOPY Open Access Amyloidosis, unspecified type (HCC) Health Maintenance Due Date Last Done Comments Breast Cancer Screening-Mammogram 1965 Colon Cancer Screening-Colonoscopy 1965 Depression Screening 1965 Hepatitis C Screening 1965 DTaP/Tdap/Td Vaccine (1 - Tdap) 01/14/1976 Hepatitis B Screening 1983 Regular Well Visit/Exam 18-64 1983 Zoster Vaccine (1 of 2) 2015 Covid-19 Vaccine (3 - 2023-2 5 season) 2024 07/24/2021, 11/25/2020 Influenza Vaccine (#1) 2024 , 07/18/2020 Pneumococcal vaccine <65 Aged Out No longer eligible based on patient's age to complete this topic Insurance REPLACED BY [facility] [id number] [facility] REPLACED BY [facility] [id number] REPLACED BY [facility] [id number] Advance Directives For more information, please contact: [phone] * Full Code (Latest Code Status on File) Date Activated Date Inactivated Comments 08/10/2024 6:48 AM 08/10/2024 12:31 PM Care Teams Home Security Professional Relationship Specialty Start Date End Date Noel Sierra MD [address] [place] [address] PCP - General 12/17/16 Referral, Self 06/22/19 Berto Chaves MD PhD Consulting Physician Medical Oncology 06/22/19
--- OUTSIDE RECORDS SUMMARY | 2024-11-21 09:33 | XMS_ITS | Encounter Summary ---
Author Organization [facility] Address [address] [facility] [address] [place] [address] Care Team Providers Care Instructional Paraprofessional Name Role Phone Noel Sierra MD Primary Care Provider Referral, Self Unavailable Unavailable Berto Chaves MD PhD Unavailable [phone] Encounter Details Date Type Department Care Team (Late st Contact Info) Description 11/23/2016 Orders Only [facility] ProviderGamal MD [address] [place] [id number] Social History Tobacco Use Types Packs/Day Years Used Date Smoking Tobacco: Never Assessed Comments Unknown Sex and Gender Information Value Date Recorded Sex Assigned at Not on file Legal Sex Female 12:52 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 Historical Provider [facility] JOHN PAUL MACK Final Result documented in this encounter Visit Diagnoses Not on filedocumented in this encounter Care Teams Instructional Paraprofessional Relationship Specialty Start Date End Date Noel Sierra MD [address] [place] [address] PCP - General 12/17/16 Referral, Self 06/22/19 Berto Chaves MD PhD Consulting Physician Medical Oncology 06/22/19 documented as of this encounter
== END 2024-11-21 09:03 | disposition home or self-care (01) ==
LOC: ANHIMG 09:05
PROVIDERS: PCP Family Medicine; Visit Provider Obstetrics & Gynecology
DX: Z12.31 Encounter for screening mammogram for malignant neoplasm of breast (principal)
CPT/HCPCS: 77063; 77067